=== PATIENT | female | born 1965 | race Caucasian/White ===

== ENCOUNTER 2023-10-01 07:23 | Outpatient (CLI) | payer BC, SELFPAY ==
--- NOTE | 2023-10-01 08:18 | W.ANESCHARGE ---
Anesthesia Charges Start Date/Time Anesthesia Start Date: 10/01/23 Anesthesia Start Time: 08:05 Stop Date/Time Anesthesia Stop Date: 10/01/23 Anesthesia Stop Time: 08:29
--- NOTE | 2023-10-01 08:32 | W.ANESCHARGE ---
Anesthesia Charges Start Date/Time Anesthesia Start Date: 10/01/23 Anesthesia Start Time: 08:05 Stop Date/Time Anesthesia Stop Date: 10/01/23 Anesthesia Stop Time: 08:29
== END 2023-10-01 07:24 | disposition home or self-care (01) ==
LOC: OP CLINIC 07:26
PROVIDERS: PCP Family Medicine; Visit Provider Internal Medicine Gastroenterology
DX: R13.10 Dysphagia, unspecified (principal)
CPT/HCPCS: 00731; 43239; 43248; 88305; J2405; J2704